=== PATIENT | male | born 1980 | race African-American/Black ===

== ENCOUNTER 2022-01-17 17:49 | Observation (INO) | payer OTHER ==
[~2022-01-17] VITALS: Ht 180.3 cm; Wt 69.9 kg
[2022-01-17] MEDS ORDERED: SODIUM CHLORIDE 0.9% 1000ML 1,000 ML IV STA ×2 (18:00→20:58)
[2022-01-17 18:18] LABS: BASOPHILS % 0.3 % (0.0-1.0); EOSINOPHILS # (AUTO) 0.1 (0.0-0.4); EOSINOPHILS % 1.1 % (0.0-6.0); HEMOGLOBIN 16.1 g/dL (14.0-18.0); LYMPHOCYTES # (AUTO) 2.6 (1.0-3.2); LYMPHOCYTES % 29.5 % (18.0-39.1); MEAN CORPUSCULAR HEMOGLOBIN 29.5 pg (28-32); MEAN CORPUSCULAR HGB CONC 33.5 g/dL (31-35); MEAN CORPUSCULAR VOLUME 88.1 fL (81-99); MONOCYTES # (AUTO) 0.9 (0.2-0.8); MONOCYTES % 10.7 % (4.4-11.3); NEUTROPHILS # (AUTO) 5.1 (2.1-6.9); NEUTROPHILS % 58.1 % (38.7-80.0); PLATELET COUNT 285 x10e3/uL (140-360); RED BLOOD COUNT 5.45 x10e6/uL (4.3-5.7); RED CELL DISTRIBUTION WIDTH 14.6 % (11.7-14.4)
[2022-01-17 18:35] LABS: ALBUMIN 3.9 g/dL (3.5-5.0); ALBUMIN/GLOBULIN RATIO 0.8 (0.8-2.0); ANION GAP 17.1 mmol/L (8-16); CREATININE, SERUM 1.27 mg/dL (0.72-1.25); POTASSIUM 4.1 mmol/L (3.5-5.1)
[2022-01-17] MEDS ORDERED: IOPAMIDOL 370 MG/ML 100 ML INFUS..BTL INJ ONE (18:58)
[2022-01-17] MEDS: METRONIDAZOLE 500MG/NS 100ML 100 ML IV SCH (19:25)
[2022-01-17] MEDS ORDERED: ONDANSETRON HCL INJ 2MG/ML 2ML 2 MG/ML VIAL IV STA (21:04)
[2022-01-17] MEDS ORDERED: Morphine 4mg Syringe 4 MG/ML INJ IV STA (21:04)
[2022-01-17 21:37] LABS: AMPHETAMINES SCREEN,URINE NEGATIVE (NEGATIVE); BENZODIAZEPINES SCREEN,URINE NEGATIVE (NEGATIVE); CLARITY,URINE CLEAR (CLEAR); COLOR,URINE STRAW (YELLOW); KETONES,URINE 1+ (NEGATIVE); LEUKOCYTE ESTERASE ,URINE NEGATIVE (NEGATIVE); NITRITE,URINE NEGATIVE (NEGATIVE); PHENCYCLIDINE SCREEN,URINE POSITIVE (NEGATIVE); PROTEIN,URINE DIPSTICK NEGATIVE (NEGATIVE)
[2022-01-17 21:38] LABS: URINE UROBILINOGEN 0.2 mg/dL (0.2 - 1)
[2022-01-18] VITALS (11 sets, daily range): BP systolic 117–159; BP diastolic 59–95
[2022-01-18] MEDS: SODIUM CHLORIDE 0.9% 1000ML 1,000 ML IV SCH ×2 (00:11→05:28)
[2022-01-18] MEDS ORDERED: TEGRETOL200 MG PO (01:02)
[2022-01-18] MEDS ORDERED: NAPROXEN250 MG PO (01:02)
[2022-01-18] MEDS ORDERED: HYDROCODON-ACE1 EA11 PO (01:03)
[2022-01-18] MEDS: Morphine 4mg Syringe 4 MG/ML INJ IV PRN ×2 (01:22→05:49)
[2022-01-18] MEDS: ONDANSETRON HCL INJ 2MG/ML 2ML 2 MG/ML VIAL IV PRN ×3 (01:22→15:07)
[2022-01-18] MEDS: METRONIDAZOLE 500MG/NS 100ML 100 ML IV SCH ×2 (05:37→18:04)
[2022-01-18 06:51] LABS: BASOPHILS % 0.4 % (0.0-1.0); EOSINOPHILS # (AUTO) 0.3 (0.0-0.4); EOSINOPHILS % 3.1 % (0.0-6.0); HEMATOCRIT 41.7 % (38.2-49.6); HEMOGLOBIN 13.5 g/dL (14.0-18.0); LYMPHOCYTES # (AUTO) 3.3 (1.0-3.2); LYMPHOCYTES % 39.1 % (18.0-39.1); MEAN CORPUSCULAR HEMOGLOBIN 29.5 pg (28-32); MEAN CORPUSCULAR HGB CONC 32.4 g/dL (31-35); MONOCYTES # (AUTO) 1.1 (0.2-0.8); MONOCYTES % 12.9 % (4.4-11.3); NEUTROPHILS # (AUTO) 3.7 (2.1-6.9); NEUTROPHILS % 44.3 % (38.7-80.0); PLATELET COUNT 218 x10e3/uL (140-360); RED BLOOD COUNT 4.58 x10e6/uL (4.3-5.7); RED CELL DISTRIBUTION WIDTH 14.6 % (11.7-14.4)
[2022-01-18 07:19] LABS: ALBUMIN 3.6 g/dL (3.5-5.0); ANION GAP 14.4 mmol/L (8-16); CALCIUM 7.9 mg/dL (8.4-10.2); CREATININE, SERUM 1.06 mg/dL (0.72-1.25); POTASSIUM 3.4 mmol/L (3.5-5.1)
[2022-01-18] MEDS ORDERED: DEXTROSE 5% 1,000 ML IV ONE (11:15)
[2022-01-18] MEDS: HYDROCODONE/APAP 5MG-325MG TAB PO PRN ×3 (15:07→22:40)
[2022-01-18] MEDS: CARBAMAZEPINE 200 MG TAB PO SCH (18:00)
[2022-01-18] MEDS: BISACODYL 10 MG SUPP PR SCH (22:43)
[2022-01-18] MEDS: HYDROCODONE/APAP 5MG-325MG TAB PO SCH (23:56)
[2022-01-19] MEDS: HYDROCODONE/APAP 5MG-325MG TAB PO PRN ×3 (03:00→10:45)
[2022-01-19 04:00] VITALS: BP 122/79
[2022-01-19] MEDS: METRONIDAZOLE 500MG/NS 100ML 100 ML IV SCH (05:20)
[2022-01-19] MEDS: HYDROCODONE/APAP 5MG-325MG TAB PO SCH (06:00)
[2022-01-19 06:17] LABS: ALBUMIN 4.1 g/dL (3.5-5.0); ANION GAP 12.4 mmol/L (8-16); CALCIUM 8.9 mg/dL (8.4-10.2); CREATININE, SERUM 1.23 mg/dL (0.72-1.25); MAGNESIUM 2.2 MG/DL (1.3-2.1); POTASSIUM 5.4 mmol/L (3.5-5.1)
[2022-01-19 06:42] LABS: BASOPHILS % 0.5 % (0.0-1.0); EOSINOPHILS # (AUTO) 0.3 (0.0-0.4); EOSINOPHILS % 4.3 % (0.0-6.0); HEMATOCRIT 43.9 % (38.2-49.6); HEMOGLOBIN 14.6 g/dL (14.0-18.0); LYMPHOCYTES # (AUTO) 2.1 (1.0-3.2); LYMPHOCYTES % 33.7 % (18.0-39.1); MEAN CORPUSCULAR HEMOGLOBIN 29.7 pg (28-32); MEAN CORPUSCULAR HGB CONC 33.3 g/dL (31-35); MEAN CORPUSCULAR VOLUME 89.4 fL (81-99); MONOCYTES % 15.9 % (4.4-11.3); NEUTROPHILS # (AUTO) 2.9 (2.1-6.9); NEUTROPHILS % 45.3 % (38.7-80.0); PLATELET COUNT 222 x10e3/uL (140-360); RED BLOOD COUNT 4.91 x10e6/uL (4.3-5.7); RED CELL DISTRIBUTION WIDTH 14.1 % (11.7-14.4)
[2022-01-19 07:58] VITALS: BP 145/86
[2022-01-19 08:00] VITALS: BP 145/86
[2022-01-19] MEDS ORDERED: NAPROXEN 250 MG TAB PO SCH (09:00)
[2022-01-19] MEDS: BISACODYL 10 MG SUPP PR SCH (09:03)
[2022-01-19] MEDS: CARBAMAZEPINE 200 MG TAB PO SCH (09:03)
[2022-01-19] MEDS ORDERED: SOD POLYSTYRENE SULFONATE SUSP 15 GM/60 ML BTL PO ONE (09:45)
[2022-01-19] MEDS ORDERED: ONDANSETRON ODT4 MG PO (11:17)
[2022-01-19] MEDS ORDERED: HYDROCODON-ACE1 EA11 PO (11:17)
[2022-01-19] MEDS ORDERED: NAPROXEN250 MG PO (11:17)
[2022-01-19 12:00] VITALS: BP 138/91
== END 2022-01-19 12:20 | disposition home or self-care (01) ==
LOC: ER 17:52 → INTOOBSV 21:19 → ERHOLD 21:19 → MED/SURG3 01-18 00:11
PROVIDERS: ADMIT Internal Medicine; ATTEND Internal Medicine
DX: K57.90 Diverticulosis of intestine, part unspecified, without perforation or abscess without bleeding (principal); R11.2 Nausea with vomiting, unspecified; G40.909 Epilepsy, unspecified, not intractable, without status epilepticus; F16.99 Hallucinogen use, unspecified with unspecified hallucinogen-induced disorder; F12.10 Cannabis abuse, uncomplicated; Z20.822 Contact with and (suspected) exposure to COVID-19
CPT/HCPCS: 36415 ×3; 74177; 80053 ×3; 80307; 81001; 83690; 83735; 84132; 85025 ×3; 96360; 96361; 99284; G0378 ×3; J2270 ×2; J2405 ×2; J2543 ×2; J7030 ×2; J7070; Q9967; U0002

== ENCOUNTER 2022-05-17 18:08 | Emergency (ER) | payer OTHER ==
[~2022-05-17] VITALS: Ht 170.2 cm; Wt 69.9 kg
[~2022-05-17 18:08] MED LIST: HYDROCODON-ACE1 EA11 PO; NAPROXEN250 MG PO; ONDANSETRON ODT4 MG PO; TEGRETOL200 MG PO
[2022-05-17] MEDS ORDERED: KETOROLAC TROMETHAMINE 30 MG/ML VIAL IV STA (18:42)
[2022-05-17] MEDS ORDERED: ONDANSETRON HCL INJ 2MG/ML 2ML 2 MG/ML VIAL IV STA (18:42)
[2022-05-17] MEDS ORDERED: SODIUM CHLORIDE 0.9% 1000ML 1,000 ML IV ONE (18:45)
[2022-05-17 19:18] LABS: BASOPHILS % 0.2 % (0.0-1.0); EOSINOPHILS # (AUTO) 0.1 (0.0-0.4); EOSINOPHILS % 0.5 % (0.0-6.0); HEMATOCRIT 47.5 % (38.2-49.6); HEMOGLOBIN 15.7 g/dL (14.0-18.0); LYMPHOCYTES # (AUTO) 2.3 (1.0-3.2); LYMPHOCYTES % 24.6 % (18.0-39.1); MEAN CORPUSCULAR HEMOGLOBIN 29.5 pg (28-32); MEAN CORPUSCULAR HGB CONC 33.1 g/dL (31-35); MEAN CORPUSCULAR VOLUME 89.3 fL (81-99); MONOCYTES % 10.7 % (4.4-11.3); NEUTROPHILS # (AUTO) 5.8 (2.1-6.9); NEUTROPHILS % 63.8 % (38.7-80.0); PLATELET COUNT 245 x10e3/uL (140-360); RED BLOOD COUNT 5.32 x10e6/uL (4.3-5.7); RED CELL DISTRIBUTION WIDTH 14.7 % (11.7-14.4)
[2022-05-17 19:41] LABS: ALBUMIN 4.2 g/dL (3.5-5.0); ALBUMIN/GLOBULIN RATIO 0.9 (0.8-2.0); ANION GAP 18.6 mmol/L (8-16); CALCIUM 9.7 mg/dL (8.4-10.2); CREATININE, SERUM 1.03 mg/dL (0.72-1.25); POTASSIUM 3.6 mmol/L (3.5-5.1)
[2022-05-17] MEDS ORDERED: DICYCLOMINE HCL 20 MG/2 ML VIAL IM ONE (20:45)
[2022-05-17] MEDS ORDERED: PANTOPRAZOLE SO40 MG PO (20:56)
[2022-05-17] MEDS ORDERED: ONDANSETRON ODT4 MG PO (20:56)
[2022-05-17] MEDS ORDERED: DICYCLOMINE HCL20 MG PO (20:56)
[2022-05-17 20:58] LABS: CLARITY,URINE SL CLOUDY (CLEAR); COLOR,URINE AMBER (YELLOW); KETONES,URINE 1+ (NEGATIVE); LEUKOCYTE ESTERASE ,URINE NEGATIVE (NEGATIVE); NITRITE,URINE NEGATIVE (NEGATIVE); PROTEIN,URINE DIPSTICK 1+ (NEGATIVE); URINE UROBILINOGEN 0.2 mg/dL (0.2 - 1)
[2022-05-17 21:06] LABS: BACTERIA,URINE FEW /HPF; MUCUS,URINE MODERATE (RARE)
[2022-05-17 22:31] VITALS: BP 120/75
[2022-05-18] MEDS ORDERED: IOPAMIDOL 370 MG/ML 100 ML INFUS..BTL INJ ONE ×2 (03:32→03:55)
== END 2022-05-17 21:51 | disposition home or self-care (01) ==
LOC: ER 18:36
DX: R11.10 Vomiting, unspecified (principal); L73.2 Hidradenitis suppurativa; K57.30 Diverticulosis of large intestine without perforation or abscess without bleeding; K59.00 Constipation, unspecified; Z90.49 Acquired absence of other specified parts of digestive tract; F17.200 Nicotine dependence, unspecified, uncomplicated
CPT/HCPCS: 36415; 74177; 80053; 81001; 83690; 85025; 99284; C9113; J0500; J1885; J2405; J7030; Q9967

== ENCOUNTER 2022-07-25 17:23 | Emergency (ER) | payer OTHER ==
[~2022-07-25] VITALS: Ht 170.2 cm; Wt 69.9 kg
[~2022-07-25 17:23] MED LIST changes: +DICYCLOMINE HCL20 MG PO; +PANTOPRAZOLE SO40 MG PO
[2022-07-25] MEDS ORDERED: KETOROLAC TROMETHAMINE 60 MG/2 ML VIAL ONE (18:13)
== END 2022-07-25 18:32 | disposition home or self-care (01) ==
LOC: ER 17:42
DX: G89.18 Other acute postprocedural pain (principal); G40.909 Epilepsy, unspecified, not intractable, without status epilepticus; Z87.19 Personal history of other diseases of the digestive system
CPT/HCPCS: 99282; J1885

== ENCOUNTER 2022-11-25 13:10 | Inpatient (IN) | payer OTHER ==
[~2022-11-25] VITALS: Ht 180.3 cm; Wt 65.8 kg
[2022-11-25] MEDS ORDERED: ONDANSETRON HCL INJ 2MG/ML 2ML 2 MG/ML VIAL IV STA (14:01)
[2022-11-25] MEDS ORDERED: SODIUM CHLORIDE 0.9% 1000ML 1,000 ML IV STA (14:01)
[2022-11-25] MEDS ORDERED: Morphine 4mg INJECTION 4 MG/ML INJ IV STA (14:01)
[2022-11-25 14:31] LABS: BASOPHILS % 0.5 % (0.0-1.0); EOSINOPHILS # (AUTO) 0.1 (0.0-0.4); EOSINOPHILS % 1.6 % (0.0-6.0); HEMATOCRIT 46.1 % (38.2-49.6); LYMPHOCYTES # (AUTO) 1.6 (1.0-3.2); LYMPHOCYTES % 25.4 % (18.0-39.1); MEAN CORPUSCULAR HEMOGLOBIN 29.2 pg (28-32); MEAN CORPUSCULAR HGB CONC 32.5 g/dL (31-35); MEAN CORPUSCULAR VOLUME 89.7 fL (81-99); MONOCYTES # (AUTO) 0.6 (0.2-0.8); MONOCYTES % 9.4 % (4.4-11.3); NEUTROPHILS % 62.8 % (38.7-80.0); PLATELET COUNT 213 x10e3/uL (140-360); RED BLOOD COUNT 5.14 x10e6/uL (4.3-5.7); RED CELL DISTRIBUTION WIDTH 13.5 % (11.7-14.4)
[2022-11-25 14:55] LABS: INR 0.88; PARTIAL THROMBOPLASTIN TIME 28.5 seconds (23.8-35.5); PROTHROMBIN TIME 12.4 seconds (11.9-14.5)
[2022-11-25 15:03] LABS: ALANINE AMINOTRANSFERASE 15 IU/L (0-55); ALBUMIN 4.2 g/dL (3.5-5.0); ALBUMIN/GLOBULIN RATIO 1.1 (0.8-2.0); ALKALINE PHOSPHATASE 66 IU/L (40-150); ANION GAP 14.4 mmol/L (8-16); BLOOD UREA NITROGEN 13 mg/dL (7-26); BUN/CREATININE RATIO 11 (6-25); CALCIUM 9.8 mg/dL (8.4-10.2); CARBON DIOXIDE 27 mmol/L (22-29); CHLORIDE 102 mmol/L (98-107); CREATINE KINASE 156 IU/L (30-200); CREATININE, SERUM 1.14 mg/dL (0.72-1.25); GLUCOSE 93 mg/dL (74-118); LIPASE 34 U/L (8-78); MAGNESIUM 2.2 MG/DL (1.3-2.1); POTASSIUM 4.4 mmol/L (3.5-5.1); SODIUM 139 mmol/L (136-145)
[2022-11-25 15:16] LABS: CREATINE KINASE MB < 1.00 ng/mL (0-4.3)
[2022-11-25 15:35] LABS: CLARITY,URINE CLEAR (CLEAR); COLOR,URINE YELLOW (YELLOW); KETONES,URINE NEGATIVE (NEGATIVE); LEUKOCYTE ESTERASE ,URINE NEGATIVE (NEGATIVE); NITRITE,URINE NEGATIVE (NEGATIVE); PROTEIN,URINE DIPSTICK NEGATIVE (NEGATIVE); URINE UROBILINOGEN 0.2 mg/dL (0.2 - 1)
[2022-11-25 15:38] LABS: AMPHETAMINES SCREEN,URINE NEGATIVE (NEGATIVE); BENZODIAZEPINES SCREEN,URINE NEGATIVE (NEGATIVE); PHENCYCLIDINE SCREEN,URINE NEGATIVE (NEGATIVE)
[2022-11-25 15:48] LABS: BACTERIA,URINE RARE /HPF; EPITHELIAL CELLS,URINE FEW /LPF; WBC,URINE (MAN) 0-5 /HPF (0-5)
[2022-11-25] MEDS ORDERED: IOPAMIDOL 370 MG/ML 100 ML INFUS..BTL INJ ONE (15:49)
[2022-11-25] MEDS ORDERED: Morphine 4mg INJECTION 4 MG/ML INJ IV PRN (17:45)
[2022-11-25] MEDS: SODIUM CHLORIDE 0.9% 1000ML 1,000 ML IV SCH (17:45)
[2022-11-25] MEDS ORDERED: ONDANSETRON HCL INJ 2MG/ML 2ML 2 MG/ML VIAL IV PRN (17:45)
[2022-11-25] MEDS: HYDROMORPHONE 1MG/1ML INJ IV PRN ×2 (19:17→23:18)
[2022-11-25] MEDS ORDERED: ONDANSETRON HCL INJ 2MG/ML 2ML 2 MG/ML VIAL ONE (19:21)
[2022-11-25] MEDS ORDERED: HYDROMORPHONE 1MG/1ML INJ ONE (19:22)
[2022-11-25 19:38] VITALS: BP 131/85
[2022-11-25 20:00] VITALS: BP 131/85
[2022-11-25] MEDS ORDERED: HYDROCODON-ACE1 EAC9 PO (20:57)
[2022-11-25] MEDS ORDERED: GABAPENTIN100 MG PO (20:58)
[2022-11-25] MEDS ORDERED: DICYCLOMINE HCL 20 MG TAB PO PRN (21:15)
[2022-11-25 21:28] VITALS: BP 131/85
[2022-11-25] MEDS: CARBAMAZEPINE 200 MG TAB PO SCH (21:49)
[2022-11-25] MEDS: HYDROCODONE/APAP 10MG-325MG TAB PO SCH (21:49)
[2022-11-26] VITALS (9 sets, daily range): BP systolic 115–132; BP diastolic 71–88
[2022-11-26] MEDS: SODIUM CHLORIDE 0.9% 1000ML 1,000 ML IV SCH ×4 (03:05→18:11)
[2022-11-26] MEDS: HYDROMORPHONE 1MG/1ML INJ IV PRN ×5 (03:08→20:08)
[2022-11-26 05:24] LABS: BASOPHILS % 0.4 % (0.0-1.0); EOSINOPHILS # (AUTO) 0.3 (0.0-0.4); EOSINOPHILS % 4.6 % (0.0-6.0); HEMATOCRIT 37.8 % (38.2-49.6); HEMOGLOBIN 12.3 g/dL (14.0-18.0); LYMPHOCYTES # (AUTO) 3.4 (1.0-3.2); LYMPHOCYTES % 50.9 % (18.0-39.1); MEAN CORPUSCULAR HEMOGLOBIN 29.5 pg (28-32); MEAN CORPUSCULAR HGB CONC 32.5 g/dL (31-35); MEAN CORPUSCULAR VOLUME 90.6 fL (81-99); MONOCYTES # (AUTO) 0.8 (0.2-0.8); MONOCYTES % 12.4 % (4.4-11.3); NEUTROPHILS # (AUTO) 2.1 (2.1-6.9); NEUTROPHILS % 31.6 % (38.7-80.0); PLATELET COUNT 158 x10e3/uL (140-360); RED BLOOD COUNT 4.17 x10e6/uL (4.3-5.7); RED CELL DISTRIBUTION WIDTH 13.5 % (11.7-14.4)
[2022-11-26] MEDS: HYDROCODONE/APAP 10MG-325MG TAB PO SCH ×3 (06:01→22:10)
[2022-11-26 06:14] LABS: ALBUMIN 3.3 g/dL (3.5-5.0); ALBUMIN/GLOBULIN RATIO 1.2 (0.8-2.0); ANION GAP 8.7 mmol/L (8-16); CALCIUM 8.4 mg/dL (8.4-10.2); CREATININE, SERUM 0.99 mg/dL (0.72-1.25); POTASSIUM 3.7 mmol/L (3.5-5.1)
[2022-11-26] MEDS: CARBAMAZEPINE 200 MG TAB PO SCH ×2 (08:22→20:08)
[2022-11-26] MEDS: GABAPENTIN 100 MG CAP PO SCH (08:22)
[2022-11-27] MEDS: HYDROMORPHONE 1MG/1ML INJ IV PRN ×4 (00:11→12:49)
[2022-11-27 00:55] VITALS: BP 133/78
[2022-11-27] MEDS: SODIUM CHLORIDE 0.9% 1000ML 1,000 ML IV SCH ×2 (01:51→08:41)
[2022-11-27 05:02] VITALS: BP 124/79
[2022-11-27] MEDS: METOCLOPRAMIDE HCL 10 MG/2ML VIAL IV SCH ×2 (06:15→12:14)
[2022-11-27] MEDS: HYDROCODONE/APAP 10MG-325MG TAB PO SCH (06:16)
[2022-11-27 07:39] VITALS: BP 107/62
[2022-11-27 08:37] VITALS: BP 107/62
[2022-11-27] MEDS: GABAPENTIN 100 MG CAP PO SCH (08:41)
[2022-11-27] MEDS: CARBAMAZEPINE 200 MG TAB PO SCH (08:41)
[2022-11-27 11:34] VITALS: BP 132/82
[2022-11-27] MEDS ORDERED: BISACODYL 10 MG SUPP PR ONE (12:15)
[2022-11-27] MEDS ORDERED: ONDANSETRON HCL 4 MG ORAL DISINTEGRATING TAB PO PRN (12:15)
[2022-11-27] MEDS ORDERED: METOCLOPRAMIDE HCL 10 MG TAB PO SCH (16:30)
[2022-11-27] MEDS ORDERED: PANTOPRAZOLE SOD 40 MG TABEC PO SCH (21:00)
== END 2022-11-27 13:24 | disposition home or self-care (01) | DRG 440 ==
LOC: ER 13:27 → ERHOLD 17:39 → MED/SURG2 19:30 → OBSVTOIN 11-27 09:50
PROVIDERS: ADMIT Internal Medicine; ATTEND Internal Medicine
DX: K86.89 Other specified diseases of pancreas (principal); G40.909 Epilepsy, unspecified, not intractable, without status epilepticus; E86.0 Dehydration; G89.4 Chronic pain syndrome; Z20.822 Contact with and (suspected) exposure to COVID-19
CPT/HCPCS: 0223U; 36415; 74019; 74177; 80053; 80156; 80307; 81001; 82550; 82553; 83690; 83735; 84484; 85025; 85610; 85730; 86301; 96361; 99284; G0378; J1170; J2270; J2405; J2765; J7030; Q9967